=== PATIENT | female | born 1995 | race African-American/Black ===

== ENCOUNTER 2018-06-08 08:50 | Emergency (ER) | payer MEDICAID ==
[2018-06-08 08:55] VITALS: BP 103/65
--- NOTE | 2018-06-08 09:22 | ER Document Report ---
ED Skin Rash/Insect Bite/Abscs - General Chief Complaint: Abscess Stated Complaint: BREAST,BACK PAIN Time Seen by Provider: 06/08/18 09:21 Mode of Arrival: Ambulatory Information source: Patient Notes: 23-year-old with 2 complaints one is some low back pain after moving here and lifting heavy boxes for 1 week. She also noticed a lump in her upper outer quadrant of the right breast. But she does not feel it now. There is no redness fever or chills. No dysuria frequency or urgency. No flank pain. No saddle anesthesia or radiculopathy. No history of breast cysts. No family history of breast cancer. Past Medical History - General Information source: Patient - Social History Smoking Status: Current Every Day Smoker Chew tobacco use (# tins/day): No Frequency of alcohol use: Occasional Drug Abuse: None Lives with: Spouse/Significant other Family History: Reviewed & Not Pertinent Patient has suicidal ideation: No Patient has homicidal ideation: No - Medical History Medical History: Negative Renal/ Medical History: Denies: Hx Peritoneal Dialysis Surgical Hx: Negative Past Surgical History: Reports: Hx Thyroid Surgery - cyst connected to thyroid Review of Systems - Review of Systems Constitutional: No symptoms reported EENT: No symptoms reported Cardiovascular: No symptoms reported Respiratory: No symptoms reported Gastrointestinal: No symptoms reported Genitourinary: No symptoms reported Female Genitourinary: No symptoms reported Musculoskeletal: See HPI Skin: No symptoms reported Hematologic/Lymphatic: No symptoms reported Neurological/Psychological: No symptoms reported Physical Exam - Vital signs Vitals: Temp Pulse Resp BP Pulse Ox 98.5 F 73 16 103/65 98 06/08/18 08:54 06/08/18 08:54 06/08/18 08:54 06/08/18 08:54 06/08/18 08:54 Interpretation: Normal - General General appearance: Appears well, Alert - HEENT Head: Normocephalic, Atraumatic Eyes: Normal Pupils: PERRL Neck: Supple - Respiratory Respiratory status: No respiratory distress Chest status: Nontender, Other - No breast mass felt Breath sounds: Normal Chest palpation: Normal - Cardiovascular Rhythm: Regular Heart sounds: Normal auscultation Murmur: No - Abdominal Inspection: Normal Distension: No distension Bowel sounds: Normal Tenderness: Nontender Organomegaly: No organomegaly - Back Back: Normal, Tender - Bilateral lumbar paraspinal muscles. No: CVA tenderness , Vertebra tenderness - Extremities General upper extremity: Normal inspection, Nontender, Normal color, Normal ROM , Normal temperature General lower extremity: Normal inspection, Nontender, Normal color, Normal ROM , Normal temperature, Normal weight bearing. No: Cesia's sign - Neurological Neuro grossly intact: Yes Cognition: Normal Orientation: AAOx4 [place] Coma Scale Eye Opening: Spontaneous [place] Coma Scale Verbal: Oriented [place] Coma Scale Motor: Obeys Commands [place] Coma Scale Total: 15 Speech: Normal Motor strength normal: LUE, RUE, LLE, RLE Sensory: Normal - Psychological Associated symptoms: Normal affect, Normal mood - Skin Skin Temperature: Warm Skin Moisture: Dry Skin Color: Normal Course - Vital Signs Vital signs: Temp Pulse Resp BP Pulse Ox 98.5 F 73 16 103/65 98 06/08/18 08:54 06/08/18 08:54 06/08/18 08:54 06/08/18 08:54 06/08/18 08:54 Discharge - Discharge Clinical Impression: Mastodynia Low back strain Qualifiers: Encounter type: initial encounter Qualified Code(s): S39.012A - Strain of muscle, fascia and tendon of lower back, initial encounter Disposition: HOME, SELF-CARE Instructions: Breast Lumps ([facility]), Breast Self-Examination ([facility]), Low Back Pain ([facility]), Muscle Strain ([facility]) Additional Instructions: Warm compress Motrin 600 mg every 6 hours as needed for pain and inflammation Tylenol up to 4000 mg a day for pain Outpatient form given to you for breast ultrasound and mammogram Follow-up with [facility] and she was moved to [place]. Prescriptions: Ibuprofen [Motrin 600 mg Tablet] 600 mg PO Q6HP PRN #30 tablet PRN Reason: Forms: Follow-Up Radiology Testing
== END 2018-06-08 10:47 | disposition home or self-care (01) ==
LOC: ER 08:50
DX: S39.012A Strain of muscle, fascia and tendon of lower back, initial encounter (principal); N64.4 Mastodynia; N63.11 Unspecified lump in the right breast, upper outer quadrant; X50.0XXA Overexertion from strenuous movement or load, initial encounter; F17.200 Nicotine dependence, unspecified, uncomplicated
CPT/HCPCS: 99283

== ENCOUNTER 2018-07-20 18:06 | Emergency (ER) | payer MEDICAID ==
[2018-07-20] MEDS ORDERED: PSEUDOEPHEDRINE HCL 30 MG TABLET PO ONE (19:37)
[2018-07-20] MEDS ORDERED: IBUPROFEN 800 MG TABLET PO ONE (19:37)
[2018-07-20] MEDS ORDERED: LORATADINE 10 MG TABLET PO ONE (19:37)
[2018-07-20] MEDS ORDERED: GUAIFENESIN 600 MG TABLET.SA PO ONE (19:37)
--- NOTE | 2018-07-20 19:41 | ER Document Report ---
ED Flu Like - General Chief Complaint: Cold Symptoms Stated Complaint: COLD SYMPTOMS Time Seen by Provider: 07/20/18 19:30 Mode of Arrival: Ambulatory Information source: Patient Notes: 23-year-old female presented to ED for flulike symptoms times 3 days. She states she has had cough cold congestion postnasal drip without improvement. She states she is taken [id number] medication when she lays down she has such a cough is hard to breathe and makes it so she cannot sleep. She states she is taken ibuprofen with no improvement. Patient is alert and oriented respirations regular and unlabored speaking in full sentences walking with a even steady gait. TRAVEL OUTSIDE OF THE [place] IN LAST 30 DAYS: No - HPI Onset: Other - 3 days Timing/Duration: Intermittent Quality of pain: Achy Severity: Severe Pain Level: 5 Associated symptoms: Body/muscle aches, Nonproductive cough, Fever, Rhinnorhea, Sinus pain/drainage, Sore throat Similar symptoms previously: Yes Recently seen / treated by doctor: No - Related Data Allergies/Adverse Reactions: No Known Allergies Allergy (Verified 06/16/18 08:24) Past Medical History - General Information source: Patient - Social History Smoking Status: Former Smoker - She quit in June 2018 Chew tobacco use (# tins/day): No Frequency of alcohol use: None Drug Abuse: None Family History: Reviewed & Not Pertinent Patient has suicidal ideation: No Patient has homicidal ideation: No - Past Medical History Cardiac Medical History: Reports: None Pulmonary Medical History: Reports: None EENT Medical History: Reports: None Neurological Medical History: Reports: None Endocrine Medical History: Reports: None Renal/ Medical History: Reports: None Malignancy Medical History: Reports: None GI Medical History: Reports: None Musculoskeletal Medical History: Reports None Skin Medical History: Reports None Psychiatric Medical History: Reports: None Traumatic Medical History: Reports: None Infectious Medical History: Reports: None Past Surgical History: Reports: Hx Thyroid Surgery - cyst connected to thyroid - Immunizations Immunizations up to date: Yes Hx Diphtheria, Pertussis, Tetanus Vaccination: Yes Review of Systems - Review of Systems Constitutional: Chills, Fever, Recent illness EENT: Nose congestion, Nose discharge, Sinus pressure, Sinus discharge, Throat pain Cardiovascular: No symptoms reported Respiratory: Cough Gastrointestinal: No symptoms reported Genitourinary: No symptoms reported Female Genitourinary: No symptoms reported Musculoskeletal: No symptoms reported Skin: No symptoms reported Hematologic/Lymphatic: No symptoms reported Neurological/Psychological: No symptoms reported -: Yes All other systems reviewed and negative Physical Exam - Vital signs Vitals: Temp Pulse Resp BP Pulse Ox 99.0 F 95 14 128/62 H 98 07/20/18 18:13 07/20/18 18:13 07/20/18 18:13 07/20/18 18:13 07/20/18 18:13 Interpretation: Normal - General General appearance: Appears well, Alert - HEENT Head: Normocephalic, Atraumatic Eyes: Normal Pupils: PERRL Ears: Normal External canal: Normal Tympanic membrane: Normal Sinus: Normal Nasal: Swelling, Clear rhinorrhea Mouth/Lips: Normal Mucous membranes: Normal Pharynx: Post nasal drainage Neck: Normal - Respiratory Respiratory status: No respiratory distress Chest status: Nontender Breath sounds: Nonproductive cough. No: Productive cough, Rales, Rhonchi, Stridor, Wheezing Chest palpation: Normal - Cardiovascular Rhythm: Regular Heart sounds: Normal auscultation Murmur: No - Abdominal Inspection: Normal Distension: No distension Bowel sounds: Normal Tenderness: Nontender Organomegaly: No organomegaly - Back Back: Normal, Nontender - Extremities General upper extremity: Normal inspection, Nontender, Normal color, Normal ROM , Normal temperature General lower extremity: Normal inspection, Nontender, Normal color, Normal ROM , Normal temperature, Normal weight bearing. No: Cesia's sign - Neurological Neuro grossly intact: Yes Cognition: Normal Orientation: AAOx4 [place] Coma Scale Eye Opening: Spontaneous [place] Coma Scale Verbal: Oriented [place] Coma Scale Motor: Obeys Commands [place] Coma Scale Total: 15 Speech: Normal Motor strength normal: LUE, RUE, LLE, RLE Sensory: Normal - Psychological Associated symptoms: Normal affect, Normal mood - Skin Skin Temperature: Warm Skin Moisture: Dry Skin Color: Normal Course - Re-evaluation Re-evalutation: 07/20/18 20:50 Assessment consistent with an upper respiratory infection. Patient was given instructions on upper respiratory infection treatments. After performing a Medical Screening Examination, I estimate there is LOW risk for ACUTE CORONARY SYNDROME, RESPIRATORY FAILURE, SEPSIS OR MENINGITIS, thus I consider the discharge disposition reasonable. I have reevaluated this patient multiple times and no significant life threatening changes are noted. The patient and I have discussed the diagnosis and risks, and we agree with discharging home with close follow-up. We also discussed returning to the Emergency Department immediately if new or worsening symptoms occur. We have discussed the symptoms which are most concerning (e.g., changing or worsening pain, trouble swallowing or breathing, neck stiffness, fever) that necessitate immediate return. - Vital Signs Vital signs: Temp Pulse Resp BP Pulse Ox 99.0 F 104 H 19 112/64 100 07/20/18 19:56 07/20/18 19:56 07/20/18 19:56 07/20/18 19:56 07/20/18 19:56 Discharge - Discharge Clinical Impression: URI (upper respiratory infection) Qualifiers: URI type: unspecified URI Qualified Code(s): J06.9 - Acute upper respiratory infection, unspecified Condition: Stable Disposition: HOME, SELF-CARE Instructions: Family Physicians / Practices Additional Instructions: UPPER RESPIRATORY ILLNESS: You have a viral infection of the respiratory passages -- a "cold." This common infection causes nasal congestion, drainage, and often sore throat and cough. It is highly contagious. The disease usually lasts about 10 to 14 days. There is no "cure" for the viral infection -- it must run its course. If there is a complication, such as bacterial infection in the nose, sinuses, middle ear, or bronchial tubes, antibiotics may be required. The antibiotics won't affect the virus. Drink plenty of fluids. A humidifier may help. An expectorant medication or decongestant may make you more comfortable. Use acetaminophen or ibuprofen for fever or aches. See the doctor if fever persists over two days, if there is any significant worsening of your symptoms, or if you simply fail to improve as expected. Were treated with Claritin 10 mg, Sudafed 30 mg, Mucinex 600 mg, and 800 mg of ibuprofen. You can get all of these medications gwkw-oyf-qgeakil. Ibuprofen you just need to take 4 of the miir-wjb-esgfltj medications. You can also use Flonase which is ovnc-hxn-igdxpxb to go according to the box instructions. Chloraseptic spray will help with your sore throat symptoms. You can also use salt and soda gargles for your sore throat. Salt and soda solution 1 quart of water 1 tablespoon of salt 1 teaspoon of baking soda Mixed 3 ingredients together and boil for 1 minute Placed in a covered quart jar Use 1/2 ounce of cold solution to gargle 3 times a day USE OF ACETAMINOPHEN (Tylenol): Acetaminophen may be taken for pain relief or fever control. It's much safer than aspirin, offering a wider range of "safe" dosages. It is safe during . Some brand names are Tylenol, Panadol, Datril, Anacin 3, Tempra, and Liquiprin. Acetaminophen can be repeated every four hours. The following are maximum recommended dosages: >89 pounds or adults 650 mg to 900 mg Acetaminophen can be repeated every four hours. Maximum dose not to exceed 4000 mg a day. Ibuprofen Ibuprofen is an excellent, safe drug for pain control. In addition, it has potent antiinflammatory effects which are beneficial, especially in the treatment of injuries, arthritis, or tendonitis. It's best to take ibuprofen with food. Persons with ulcer disease or allergy to aspirin should notify their physician of this before taking ibuprofen. Take the medication exactly as prescribed. Don't take additional doses unless instructed to do so by your doctor. If you develop wheezing, shortness of breath, hives, faintness, stomach pain, vomiting, or dark black stools, return for re-evaluation at once. Congratulations from stopping smoking FOLLOW-UP CARE: If you have been referred to a physician for follow-up care, call the physician s office for an appointment as you were instructed or within the next two days. If you experience worsening or a significant change in your symptoms, notify the physician immediately or return to the Emergency Department at any time for re-evaluation. Forms: Elevated Blood Pressure
[2018-07-20 19:57] VITALS: BP 112/64
== END 2018-07-20 19:57 | disposition home or self-care (01) ==
LOC: ER 18:06
DX: J06.9 Acute upper respiratory infection, unspecified (principal); R05 Cough; R09.81 Nasal congestion; R09.82 Postnasal drip; M79.10 Myalgia, unspecified site; R50.9 Fever, unspecified; J34.89 Other specified disorders of nose and nasal sinuses; R51 Headache; J02.9 Acute pharyngitis, unspecified; Z87.891 Personal history of nicotine dependence
CPT/HCPCS: 99283; J3490 ×3

== ENCOUNTER → 2018-08-09 | Outpatient (CLI) | payer MEDICAID ==
[2018-08-09 12:39] LABS: RBCS (WET MOUNT) RARE RBCS SEEN; T.VAGINALIS (WET MOUNT) NO TRICHOMONAS SEEN; WBCS (WET MOUNT) RARE WBCS SEEN; YEAST (WET MOUNT) NO YEAST SEEN
[2018-08-09 14:08] LABS: CHLAM PCR DETECTED (NOT DETECT); GON PCR NOT DETECTED (NOT DETECT)
== END ==
LOC: LAB 12:12
PROVIDERS: ATTEND Nurse Practitioner Acute Care
DX: R30.0 Dysuria (principal); R10.30 Lower abdominal pain, unspecified
CPT/HCPCS: 87210; 87491; 87591

== ENCOUNTER 2018-09-09 20:06 | Emergency (ER) | payer MEDICAID ==
[2018-09-09 22:20] VITALS: BP 165/80
[2018-09-09] MEDS ORDERED: ONDANSETRON 4 MG TAB.RAPDIS PO ONE (22:26)
--- NOTE | 2018-09-09 22:29 | ER Document Report ---
ED General - General Chief Complaint: Dizziness Stated Complaint: SHORTNESS OF BREATH Time Seen by Provider: 09/09/18 22:18 Primary Care Provider: NILDA FELIX NP [Primary Care Provider] - Follow up as needed Mode of Arrival: Ambulatory Information source: Patient, Relative, [facility] Records Notes: 23-year-old female with anxiety presents with complaint of an episode of shortness of breath, nausea and fatigue that occurred just prior to arrival. Patient states that while at rest watching TV she had a onset of shortness of breath, became nauseous and ran to the bathroom because she thought she was going to vomit. She states that she felt shaky at that time. Upon my exam patient is no longer nauseous, short of breath or dizzy. Patient's last menstrual period was July 2018. She denies any fever, chills, chest pain, abdominal pain, hematuria, dysuria, recent illness. Patient is a former smoker. She does not drink or participate in illicit drug use. TRAVEL OUTSIDE OF THE [place] IN LAST 30 DAYS: No - HPI Onset: Just prior to arrival Onset/Duration: Sudden, Gone Quality of pain: No pain Associated symptoms: Nausea, Shortness of breath, Other - Dizziness. denies: Body/muscle aches, Chest pain, Nonproductive cough, Productive cough, Diarrhea, Fever, Headache, Hurts to breath, Leg swelling, Vomiting, Rhinnorhea Exacerbated by: Denies Relieved by: Denies Similar symptoms previously: No Recently seen / treated by doctor: No - Related Data Allergies/Adverse Reactions: No Known Allergies Allergy (Verified 06/16/18 08:24) Past Medical History - General Information source: Patient - Social History Smoking Status: Never Smoker Chew tobacco use (# tins/day): No Frequency of alcohol use: None Drug Abuse: None Lives with: Spouse/Significant other Family History: Reviewed & Not Pertinent Patient has suicidal ideation: No Patient has homicidal ideation: No - Medical History Medical History: Negative Renal/ Medical History: Denies: Hx Peritoneal Dialysis Past Surgical History: Reports: Hx Thyroid Surgery - cyst connected to thyroid - Immunizations Immunizations up to date: Yes Hx Diphtheria, Pertussis, Tetanus Vaccination: Yes Review of Systems - Review of Systems Notes: REVIEW OF SYSTEMS: CONSTITUTIONAL : Denies fever, chills, or sweats. Denies recent illness. Denies weight loss, recent hospitalizations. EENT: Denies visual changes, eye pain. Denies sore throat, oral lesions, difficulty swallowing. CARDIOVASCULAR: Denies chest pain. Denies palpitations. Denies lower extremity edema. RESPIRATORY: Denies cough. Denies wheezing. GASTROINTESTINAL: Denies abdominal pain or distention. Denies vomiting, or diarrhea. Denies blood in vomitus, stools, or per rectum. Denies black, tarry stools. Denies constipation. GENITOURINARY: Denies difficulty urinating, painful urination, frequency, blood in urine, or vaginal discharge. MUSCULOSKELETAL: Denies back or neck pain or stiffness. Denies joint pain or swelling. SKIN: Denies rash, lesions or sores. HEMATOLOGIC : Denies easy bruising or bleeding. LYMPHATIC: Denies swollen glands. NEUROLOGICAL: Denies confusion or altered mental status. Denies loss of consciousness. Denies headache. Denies weakness or paralysis. Denies problems difficulty with ambulation, slurred speech. Denies sensory loss, numbness, or tingling. Denies seizures. PSYCHIATRIC: Denies anxiety or stress. Denies depression, suicidal ideation, or homicidal ideation. Denies visual or auditory hallucinations. Physical Exam - Vital signs Vitals: Temp Pulse Resp BP Pulse Ox 98.3 F 83 16 121/73 97 09/09/18 21:00 09/09/18 21:00 09/09/18 21:00 09/09/18 21:00 09/09/18 21:00 - Notes Notes: PHYSICAL EXAMINATION: GENERAL: Well-appearing, well-nourished and in no acute distress. HEAD: Atraumatic, normocephalic. EYES: Pupils equal round and reactive to light, extraocular movements intact, conjunctiva are normal. ENT: Nares patent, oropharynx clear without exudates. Moist mucous membranes. NECK: Normal range of motion, supple without lymphadenopathy LUNGS: Breath sounds clear to auscultation bilaterally and equal. No wheezes rales or rhonchi. HEART: Regular rate and rhythm without murmurs ABDOMEN: Soft, nontender, nondistended abdomen. No guarding, no rebound. No masses appreciated. Female : deferred Musculoskeletal: Normal range of motion, no pitting or edema. No cyanosis. NEUROLOGICAL: Cranial nerves grossly intact. Normal speech, normal gait. Normal sensory, motor exams PSYCH: Normal mood, normal affect. SKIN: Warm, Dry, normal turgor, no rashes or lesions noted. Course - Re-evaluation Re-evalutation: 09/10/18 19:30 Laboratory 09/09/18 22:43 Urine Color YELLOW Urine Appearance CLEAR Urine pH 6.0 Ur Specific [place] 1.029 Urine Protein NEGATIVE Urine Glucose (UA) NEGATIVE Urine Ketones NEGATIVE Urine Blood NEGATIVE Urine Nitrite NEGATIVE Urine Bilirubin NEGATIVE Urine Urobilinogen NEGATIVE Ur Leukocyte Esterase NEGATIVE Urine WBC (Auto) 1 Urine RBC (Auto) 0 Squamous Epi Cells Auto <1 Urine Mucus (Auto) RARE Urine Ascorbic Acid NEGATIVE Urine HCG, Qual NEGATIVE Chest X-Ray 09/09/18 22:26 IMPRESSION: Negative chest copyright 2011 [employer]- All Rights Reserved Temp Pulse Resp BP Pulse Ox 98.3 F 85 20 165/80 H 100 09/09/18 21:00 09/09/18 22:18 09/09/18 22:18 09/09/18 22:18 09/09/18 22:18 23-year-old female presents with concern for acute onset of shortness of breath nausea and dizziness that resolved prior to arrival and has not reoccurred. Vital signs stable with mild hypertension. Patient does not appear toxic or dehydrated. She is in no acute distress. Patient has a normal neurologic and physical exam. She is ambulating and tolerating fluids. Urinalysis is negative for and infection and chest x-ray shows no acute process. Patient is PERC negative. Patient was reassured and discharged home with recommendations to follow-up with her primary care physician as needed. Patient was evaluated and treated as appropriate for the patient's presenting symptoms and complaint, with consideration of any critical or life threatening conditions that may be associated with their obtained history and exam as noted above. All results were discussed with patient and her significant other at the bedside. Patient provided the opportunity to ask questions, and express concerns. Patient was educated on treatments based on their presumed diagnosis as noted above. At this time we will discharge the patient with return precautions and follow-up recommendations. Verbal discharge instructions given a the bedside. Medication warnings reviewed. Patient is in agreement with this plan and has verbalized understanding of return precautions. After careful consideration I feel that that patient can be safely discharged from the emergency department, they were advised to followup with a primary care physician in 2-3 days. Dictation on this chart was performed using voice recognition software and may result in unintended grammatical, spelling, syntax or errors. - Vital Signs Vital signs: Temp Pulse Resp BP Pulse Ox 98.3 F 85 20 165/80 H 100 09/09/18 21:00 09/09/18 22:18 09/09/18 22:18 09/09/18 22:18 09/09/18 22:18 - Diagnostic Test Radiology reviewed: Image reviewed, Reports reviewed Discharge - Discharge Clinical Impression: Nausea, Elevated blood pressure reading, Dizziness Dyspnea Qualifiers: Dyspnea type: unspecified Qualified Code(s): R06.00 - Dyspnea, unspecified Condition: Good Disposition: HOME, SELF-CARE Instructions: Antinausea Medication ([facility]), Dizziness ([facility]), Dyspnea, Nonspecific ([facility]), Nausea or Vomiting, Nonspecific ([facility]) Prescriptions: Ondansetron [Zofran Odt 4 mg Tablet] 1 tab PO Q6H PRN #15 tab.rapdis PRN Reason: For Nausea/Vomiting Forms: Elevated Blood Pressure Referrals: NILDA FELIX NP [Primary Care Provider] - Follow up as needed
--- NOTE | 2018-09-09 22:56 | RADIOLOGY REPORT (SQ) ---
EXAM DESCRIPTION: XR CHEST 2 VIEWS COMPLETED DATE/TME: 09/09/2018 22:26 CLINICAL HISTORY: 23 years, Female, sob COMPARISON: None. NUMBER OF VIEWS: 2 TECHNIQUE: Frontal and lateral views of the chest LIMITATIONS: None. FINDINGS: Heart size is normal. Lungs are clear. No pneumothorax IMPRESSION: Negative chest copyright 2010 [employer]- All Rights Reserved
[2018-09-09 23:26] LABS: APPEARANCE,URINE CLEAR; BILIRUBIN,URINE NEGATIVE (NEGATIVE); COLOR,URINE YELLOW; GLUCOSE, URINE NEGATIVE (NEGATIVE); KETONES,URINE NEGATIVE (NEGATIVE); LEUKOCYTE ESTERASE,URINE NEGATIVE (NEGATIVE); NITRITE,URINE NEGATIVE (NEGATIVE); PROTEIN,URINE NEGATIVE (NEGATIVE); URINE SPECIFIC GRAVITY 1.029; UROBILINOGEN,URINE NEGATIVE mg/dL (<2.0)
== END 2018-09-10 01:54 | disposition home or self-care (01) ==
LOC: ER 09-10 01:32
DX: R11.0 Nausea (principal); R42 Dizziness and giddiness; R03.0 Elevated blood-pressure reading, without diagnosis of hypertension; R06.00 Dyspnea, unspecified; R06.02 Shortness of breath; R53.83 Other fatigue
CPT/HCPCS: 99284; 81025; 81001; 71046; S0119

== ENCOUNTER 2018-11-16 03:35 | Emergency (ER) | payer MEDICAID ==
[2018-11-16 03:51] VITALS: BP 121/59
[2018-11-16] MEDS ORDERED: KETOROLAC TROMETHAMINE 60 MG/2 ML SDV IM ONE (04:30)
[2018-11-16] MEDS ORDERED: HYDROCODONE/ACETAMINOPHEN 5-325 MG (6 TAB/ER DISP) PO PRN (04:30)
--- NOTE | 2018-11-16 04:36 | ER Document Report ---
HPI - HPI Time Seen by Provider: 11/16/18 04:23 Pain Level: 4 Context: Patient is a 23-year-old female that comes emergency department for chief complaint of soreness in her mouth after wisdom tooth extraction. She had 2 wisdom teeth removed, 1 from each side, this was performed during the day earlier today, she states she was prescribed Tylenol, she has taken Tylenol and she cannot sleep because of the throbbing pain. She is able to swallow her secretions, she denies bleeding, she denies any change in swelling since she was sent home from the dentist. She denies fever or chills. She denies any other complaints. She takes no daily prescribed medications, LMP within the past month. - REPRODUCTIVE Reproductive: DENIES: : Past Medical History - General Information source: Patient - Social History Smoking Status: Never Smoker Frequency of alcohol use: None Drug Abuse: None Lives with: Family Family History: Reviewed & Not Pertinent Renal/ Medical History: Denies: Hx Peritoneal Dialysis Past Surgical History: Reports: Hx Thyroid Surgery - cyst connected to thyroid - Immunizations Immunizations up to date: Yes Hx Diphtheria, Pertussis, Tetanus Vaccination: Yes Vertical Provider Document - CONSTITUTIONAL General Appearance: WD/WN, No Apparent Distress - INFECTION CONTROL TRAVEL OUTSIDE OF THE [place] IN LAST 30 DAYS: No - HEENT HEENT: Atraumatic, Normocephalic. negative: Normal ENT Exam - There is some swelling behind both lower molar areas, appears to have sutures with some dried blood over the areas. No concerning swelling. Unremarkable tongue, oral pharyngeal exam. No evidence of Vincent's angina. No evidence of peritonsillar abscess or hematoma. - NECK Neck: Normal Inspection - RESPIRATORY Respiratory: Breath Sounds Normal, No Respiratory Distress - CARDIOVASCULAR Cardiovascular: Regular Rate, Regular Rhythm - GI/ABDOMEN Gastrointestinal: Abdomen Soft, Abdomen Non-Tender - MUSCULOSKELETAL/EXTREMETIES Musculoskeletal/Extremeties: MAEW, FROM, Non-Tender - NEURO Level of Consciousness: Awake, Alert, Appropriate Motor/Sensory: No Motor Deficit, No Sensory Deficit - DERM Integumentary: Warm, Dry, No Rash Course - Re-evaluation Re-evalutation: Patient is straightforward with me that she has not had any worsening symptoms since her procedure but she could not sleep and she came in hoping for some symptom management. Her physical examination does not show any bleeding, concerning swelling, airway abnormality, pharyngeal edema mildly, tongue abnormality. Vital signs unremarkable. Patient is actually quite well- appearing. Patient is driving home. Provided with a dose of Toradol here, [place] dose pack to use only for sleep at home, ibuprofen prescription. Discussed follow-up, return precautions. Patient states understanding and agreement. - Vital Signs Vital signs: Temp Pulse Resp BP Pulse Ox 98.2 F 121 H 16 121/59 L 98 11/16/18 03:49 11/16/18 03:49 11/16/18 03:49 11/16/18 03:49 11/16/18 03:49 Discharge - Discharge Clinical Impression: Oral pain Condition: Stable Disposition: HOME, SELF-CARE Additional Instructions: During the day I recommend taking the 800 mg of ibuprofen as prescribed, at night you can take the medication provided for you from here, 1-2 tablets, to help you sleep. These can also be combined. Follow-up with your dentist for additional evaluation and management. Return if you worsen including inability to swallow, increased swelling, fever, or any other concerning or worsening symptoms. Prescriptions: Ibuprofen [Ibu] 800 mg PO TID PRN #30 tablet PRN Reason:
== END 2018-11-16 04:52 | disposition home or self-care (01) ==
LOC: ER 03:35
DX: G89.18 Other acute postprocedural pain (principal); K13.79 Other lesions of oral mucosa
CPT/HCPCS: 99282; 96372; J1885

== ENCOUNTER 2019-02-10 08:40 | Emergency (ER) | payer MEDICAID ==
[2019-02-10] MEDS ORDERED: NORMAL SALINE 1000 ML 1,000 ML IV ONE (09:25)
--- NOTE | 2019-02-10 09:26 | ER Document Report ---
ED Medical Screen (RME) - General Chief Complaint: Abdominal Pain Stated Complaint: ABDOMINAL PAIN Time Seen by Provider: 02/10/19 09:24 Mode of Arrival: Ambulatory Information source: Patient Notes: Patient presents complaining of bilateral breast pain, left flank pain and left lower quadrant pain off and on for the past 2 weeks. Patient states she has felt several anxiety episodes over the past several weeks as well. Patient also reports dizziness. Patient denies any urinary symptoms. Patient has not had her menstrual period this month although does have a Nexplanon control i mplant. I have greeted and performed a rapid initial assessment of this patient. A comprehensive ED assessment and evaluation of the patient, analysis of test results and completion of the medical decision making process will be conducted by additional ED providers. TRAVEL OUTSIDE OF THE [place] IN LAST 30 DAYS: No - Related Data Allergies/Adverse Reactions: No Known Allergies Allergy (Verified 02/10/19 08:43) Past Medical History Renal/ Medical History: Denies: Hx Peritoneal Dialysis Past Surgical History: Reports: Hx Thyroid Surgery - cyst connected to thyroid - Immunizations Immunizations up to date: Yes Hx Diphtheria, Pertussis, Tetanus Vaccination: Yes Physical Exam - Vital signs Vitals: Temp Pulse Resp BP Pulse Ox 98.6 F 82 18 139/70 H 98 02/10/19 08:52 02/10/19 08:52 02/10/19 08:52 02/10/19 08:52 02/10/19 08:52 - Back Back: CVA tenderness - Left Course - Vital Signs Vital signs: Temp Pulse Resp BP Pulse Ox 98.6 F 82 18 139/70 H 98 02/10/19 08:52 02/10/19 08:52 02/10/19 08:52 02/10/19 08:52 02/10/19 08:52
[2019-02-10 09:56] LABS: ABSOLUTE EOSINOPHILS # (AUTO) 0.1 10^3/uL (0.0-0.6); ABSOLUTE MONOCYTES (AUTO) 0.4 10^3/uL (0.1-1.4); ABSOLUTE NEUT (AUTO) 2.1 10^3/uL (1.7-8.2); BASOPHILS % (AUTO) 0.7 % (0-2); EOSINOPHILS % (AUTO) 2.1 % (0-6); HEMATOCRIT 42.4 % (36.0-47.0); HEMOGLOBIN 14.2 g/dL (12.0-15.5); MEAN CORPUSCULAR HEMOGLOBIN 28.8 pg (27.0-33.4); MEAN CORPUSCULAR HGB CONC 33.5 g/dL (32.0-36.0); MEAN CORPUSCULAR VOLUME 86 fl (80-97); MONOCYTES % (AUTO) 8.6 % (3-13); PLATELET COUNT 249 10^3/uL (150-450); RED BLOOD COUNT 4.93 10^6/uL (3.72-5.28); RED CELL DISTRIBUTION WIDTH 13.3 % (11.5-14.0); SEGMENTED NEUTROPHILS % (AUTO) 44.6 % (42-78); TOTAL CELLS COUNTED % (AUTO) 100 %; WHITE BLOOD COUNT 4.6 10^3/uL (4.0-10.5)
--- NOTE | 2019-02-10 10:02 | ER Document Report ---
Addendum entered and electronically signed by COLLIN PAYNE PA-C 02/10/19 15:02: Course - Vital Signs Vital signs: Temp Pulse Resp BP Pulse Ox 98.6 F 82 18 139/70 H 98 02/10/19 08:52 02/10/19 08:52 02/10/19 08:52 02/10/19 08:52 02/10/19 08:52 - Laboratory Result Diagrams: 02/10/19 09:34 02/10/19 09:34 Laboratory results interpreted by me: 02/10/19 09:34 Creatinine 0.49 L AST 40 H - EKG Interpretation by Me EKG shows normal: Sinus rhythm Rate: Normal Rhythm: NSR - no STEMI Original Note: ED General - General Chief Complaint: Abdominal Pain Stated Complaint: ABDOMINAL PAIN Time Seen by Provider: 02/10/19 09:24 Mode of Arrival: Ambulatory TRAVEL OUTSIDE OF THE [place] IN LAST 30 DAYS: No - HPI Notes: 23-year-old female to the emergency department with complaints of left lower abdominal pain as well as right lower abdominal pain that began about a week ago . States that the pain comes and goes but has been getting worse in the past 24 hours. Most of the pain is in the left lower quadrant. Had a normal bowel movement yesterday. Denies any diarrhea. Does admit to some nausea but has not been vomiting. Denies fevers, chills, chest pain, shortness of breath, urinary complaints, history of kidney stones. She has a history of ovarian cyst and this feels slightly similar but she is not completely sure. Denies vaginal discharge, vaginal bleeding. Also reports some increased anxiety over the past several weeks. 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 She denies any suicidal thoughts or homicidal thoughts. She would like to follow-up for outpatient therapy for her anxiety. - Related Data Allergies/Adverse Reactions: No Known Allergies Allergy (Verified 02/10/19 08:43) Past Medical History - General Information source: Patient - Social History Smoking Status: Never Smoker Chew tobacco use (# tins/day): No Frequency of alcohol use: None Drug Abuse: None Family History: Reviewed & Not Pertinent Patient has suicidal ideation: No Patient has homicidal ideation: No Renal/ Medical History: Denies: Hx Peritoneal Dialysis Past Surgical History: Reports: Hx Thyroid Surgery - cyst connected to thyroid - Immunizations Immunizations up to date: Yes Hx Diphtheria, Pertussis, Tetanus Vaccination: Yes Review of Systems - Review of Systems Constitutional: No symptoms reported EENT: No symptoms reported Cardiovascular: denies: Chest pain, Palpitations, Syncope, Dizziness, Lightheaded Respiratory: denies: Cough, Short of breath Gastrointestinal: Abdominal pain, Nausea. denies: Diarrhea, Vomiting, Constipation Genitourinary: denies: Frequency, Hematuria, Urgency, Retention Female Genitourinary: denies: Heavy/abnormal periods, Vaginal discharge, Vaginal bleeding, Vaginal odor, Painful intercourse Musculoskeletal: No symptoms reported Skin: No symptoms reported Neurological/Psychological: Anxiety. denies: Depression, Hallucinations, Homicidal ideation, Suicidal ideation -: Yes All other systems reviewed and negative Physical Exam - Vital signs Vitals: Temp Pulse Resp BP Pulse Ox 98.6 F 82 18 139/70 H 98 02/10/19 08:52 02/10/19 08:52 02/10/19 08:52 02/10/19 08:52 02/10/19 08:52 Interpretation: Normal - General General appearance: Appears well, Alert - HEENT Head: Normocephalic, Atraumatic Eyes: Normal Pupils: PERRL - Respiratory Respiratory status: No respiratory distress Chest status: Nontender Breath sounds: Normal Chest palpation: Normal - Cardiovascular Rhythm: Regular Heart sounds: Normal auscultation Murmur: No - Abdominal Inspection: Obese Distension: No distension Bowel sounds: Normal Tenderness: Tender - Mild tenderness to palpation over the left lower quadrant and into the right lower quadrant. Negative Rovsing's. No rebound, no guarding, no CVA tenderness - Back Back: Normal, Nontender - Neurological Neuro grossly intact: Yes Cognition: Normal Orientation: AAOx4 Mobile Coma Scale Eye Opening: Spontaneous Jose Manuel Coma Scale Verbal: Oriented Jose Manuel Coma Scale Motor: Obeys Commands Jose Manuel Coma Scale Total: 15 Speech: Normal Motor strength normal: LUE, RUE, LLE, RLE Sensory: Normal - Psychological Associated symptoms: Normal affect, Anxious - Admits to anxiety that has been worse over the past couple of weeks. Admits to a history of anxiety. Denies SI, HI, hallucinations. No: Labile, Tactile hallucinations, Visual hallucinations - Skin Skin Temperature: Warm Skin Moisture: Dry Skin Color: Normal Course - Re-evaluation Re-evalutation: 02/10/19 14:53 Patient is doing well. Noted CT reading with left ovarian cyst. No other intra-abdominal acute process. She has had good pain control since being here in the emergency department. - Vital Signs Vital signs: Temp Pulse Resp BP Pulse Ox 98.6 F 82 18 139/70 H 98 02/10/19 08:52 02/10/19 08:52 02/10/19 08:52 02/10/19 08:52 02/10/19 08:52 - Laboratory Result Diagrams: 02/10/19 09:34 02/10/19 09:34 Laboratory results interpreted by me: 02/10/19 09:34 Creatinine 0.49 L AST 40 H - Diagnostic Test Radiology reviewed: Image reviewed, Reports reviewed - Transfer of Care Notes: 02/10/19 14:54 Impression: Left ovarian cyst. Plan to send home with Motrin and small amount of tramadol for pain control. We will also have patient follow with [facility] for follow-up of ovarian cyst. Patient also complains of anxiety has been worsening over the past several weeks due to stress in her life. She denies SI, HI, hallucinations. We will plan on giving her information for follow-up for outpatient therapy for anxiety. Have also encouraged her to return immediately if she is beginning to feel she is having suicidal thoughts or homicidal thoughts. Will have our cardroom worker give patient resources for follow-up. Discharge - Discharge Clinical Impression: Left ovarian cyst, Abdominal pain, Anxiety Condition: Good Disposition: HOME, SELF-CARE Instructions: Ovarian Cyst ([facility]), Anxiety ([facility]), [facility] Additional Instructions: Follow-up with [facility] for further management and treatment of ovarian cyst. Take medicines as prescribed. Follow-up with outpatient psychiatric services for anxiety. Return immediately if any worsening anxiety, depression, suicidal thoughts, homicidal thoughts, hallucinations. Prescriptions: Ibuprofen [Motrin 600 mg Tablet] 600 mg PO TID #24 tablet Tramadol HCl [Ultram 50 mg Tablet] 50 mg PO DAILY #7 tab Forms: Return to Work Referrals: DAYAN CHIU MD [ACTIVE STAFF] - Follow up as needed
[2019-02-10 10:03] LABS: APPEARANCE,URINE CLEAR; BILIRUBIN,URINE NEGATIVE (NEGATIVE); COLOR,URINE YELLOW; GLUCOSE, URINE NEGATIVE (NEGATIVE); KETONES,URINE NEGATIVE (NEGATIVE); LEUKOCYTE ESTERASE,URINE NEGATIVE (NEGATIVE); NITRITE,URINE NEGATIVE (NEGATIVE); PROTEIN,URINE NEGATIVE (NEGATIVE); URINE SPECIFIC GRAVITY 1.017; UROBILINOGEN,URINE NEGATIVE mg/dL (<2.0)
[2019-02-10 10:17] LABS: ALANINE AMINOTRANSFERASE 27 U/L (9-52); ALBUMIN 4.6 g/dL (3.5-5.0); ALKALINE PHOSPHATASE 82 U/L (38-126); ANION GAP 9 (5-19); ASPARTATE AMINO TRANSFERASE 40 U/L (14-36); BILIRUBIN,DIRECT 0.2 mg/dL (0.0-0.4); BILIRUBIN,TOTAL 0.5 mg/dL (0.2-1.3); BLOOD UREA NITROGEN 11 mg/dL (7-20); CALCIUM 9.7 mg/dL (8.4-10.2); CARBON DIOXIDE 25 mmol/L (22-30); CHLORIDE 106 mmol/L (98-107); GLUCOSE 98 mg/dL (75-110); POTASSIUM 4.3 mmol/L (3.6-5.0); SODIUM 139.9 mmol/L (137-145)
[2019-02-10] MEDS ORDERED: ONDANSETRON HCL INJ/PF 4 MG/2 ML SDV IV ONE (11:05)
[2019-02-10] MEDS ORDERED: MORPHINE SULFATE 10 MG/ML INJ IV ONE (11:06)
--- NOTE | 2019-02-10 14:32 | RADIOLOGY REPORT (SQ) ---
EXAM DESCRIPTION: CT ABD/PELVIS WITH IV ORAL COMPLETED DATE/TIME: 02/10/2019 2:20 pm REASON FOR STUDY: RLQ and LLQ abd pain COMPARISON: None. TECHNIQUE: CT scan of the abdomen and pelvis performed with intravenous and oral contrast using shahab santiago scanning technique with dynamic intravenous contrast injection. Images reviewed with lung, soft t issue, and bone windows. Reconstructed coronal and sagittal MPR images reviewed. Delayed images for e valuation of the urinary system also acquired. All images stored on PACS. All CT scanners at this facility use dose modulation, iterative reconstruction, and/or weight based d osing when appropriate to reduce radiation dose to as low as reasonably achievable (ALARA). [facility]: Dose Right [facility]: CareDose [facility]: Dose Right [facility]: Teradose 4D [facility]: [employer] CONTRAST TYPE AND DOSE: contrast/concentration: Isovue 350.00 mg/ml; Total Contrast Delivered: 100.0 ml; Total Saline Delivered: 43.8 ml RENAL FUNCTION: BUN 11 creatinine 0.49. RADIATION DOSE: CT Rad equipment meets quality standard of care and radiation dose reduction techniq ues were employed. CTDIvol: 17.2 - 20.1 mGy. DLP: 1823 mGy-cm.. LIMITATIONS: None. FINDINGS: LOWER CHEST: No significant findings. No nodules or infiltrates. LIVER: Normal size. No masses. No dilated ducts. SPLEEN: Normal size. No focal lesions. PANCREAS: No masses. No significant calcifications. No adjacent inflammation or peripancreatic fluid collections. Pancreatic duct not dilated. GALLBLADDER: No identified stones by CT criteria. No inflammatory changes to suggest cholecystitis. ADRENAL GLANDS: No significant masses or asymmetry. RIGHT KIDNEY AND URETER: No solid masses. No significant calcification. No hydronephrosis or hydroure ter. LEFT KIDNEY AND URETER: No solid masses. No significant calcification. No hydronephrosis or hydrouret er. AORTA AND VESSELS: No aneurysm. No dissection. Renal arteries, SMA, celiac without stenosis. RETROPERITONEUM: No retroperitoneal adenopathy, hemorrhage or masses. BOWEL AND PERITONEAL CAVITY: No obstruction. No visualized masses. No free fluid. No inflammatory ch anges or thickening of bowel wall. APPENDIX: Normal. PELVIS: 2.6 cm left ovarian cyst. Normal bladder. No free fluid. ABDOMINAL WALL: No masses. No hernias. BONES: No significant or acute findings. OTHER: No other significant finding. IMPRESSION: 2.6 CM LEFT OVARIAN CYST. NO OTHER SIGNIFICANT OR ACUTE FINDINGS IN THE ABDOMEN OR PELV IS. TECHNICAL DOCUMENTATION: JOB ID: [id number] Quality ID # [id number]: Final reports with documentation of one or more dose reduction techniques (e.g., Au tomated exposure control, adjustment of the mA and/or kV according to patient size, use of iterative reconstruction technique) 2010 [employer]- All Rights Reserved Reading location - IP/workstation name: [email or web address]
[2019-02-10 15:11] VITALS: BP 123/65
--- NOTE | 2019-02-10 21:58 | EKG REPORT ---
SEVERITY:- NORMAL ECG - SINUS RHYTHM : Confirmed by: Jude De Leon 10-Feb-2019 21:58:06
== END 2019-02-10 15:30 | disposition home or self-care (01) ==
LOC: ER 08:40
DX: N83.202 Unspecified ovarian cyst, left side (principal); F41.9 Anxiety disorder, unspecified; R11.0 Nausea; R10.32 Left lower quadrant pain; R10.814 Left lower quadrant abdominal tenderness; R10.31 Right lower quadrant pain; R10.813 Right lower quadrant abdominal tenderness
CPT/HCPCS: 93005; 99284; 36415; 84703; 85025; 80053; 81001; 74177; 93010; J2270; J2405; J7030

== ENCOUNTER 2019-04-11 10:44 | Emergency (ER) | payer MEDICAID ==
[2019-04-11] MEDS ORDERED: NORMAL SALINE 1000 ML 1,000 ML IV ONE (11:53)
--- NOTE | 2019-04-11 11:53 | ER Document Report ---
ED Medical Screen (RME) - General Chief Complaint: Abdominal Pain Stated Complaint: ABDOMINAL PAIN Time Seen by Provider: 04/11/19 11:48 Mode of Arrival: Ambulatory Information source: Patient Notes: 23-year-old female presented to ED for complaint of left abdomen and flank pain that started this morning. She has no nausea vomiting or diarrhea. She states she has not had any urinary frequency urgency or blood in her urine. She does have a Nexplanon and she has had thyroid cyst removed. She denies any smoking drinking or using any drugs. She does have tenderness to the left CVA and left upper quadrant. I have greeted and performed a rapid initial assessment of this patient. A comprehensive ED assessment and evaluation of the patient, analysis of test results and completion of medical decision making process will be conducted by an additional ED providers. TRAVEL OUTSIDE OF THE [place] IN LAST 30 DAYS: No - Related Data Allergies/Adverse Reactions: No Known Allergies Allergy (Verified 02/10/19 08:43) Past Medical History Renal/ Medical History: Denies: Hx Peritoneal Dialysis Past Surgical History: Reports: Hx Thyroid Surgery - cyst connected to thyroid - Immunizations Immunizations up to date: Yes Hx Diphtheria, Pertussis, Tetanus Vaccination: Yes Physical Exam - Vital signs Vitals: Temp Pulse Resp BP Pulse Ox 97.9 F 78 16 111/66 99 04/11/19 10:59 04/11/19 10:59 04/11/19 10:59 04/11/19 10:59 04/11/19 10:59 Course - Vital Signs Vital signs: Temp Pulse Resp BP Pulse Ox 97.9 F 78 16 111/66 99 04/11/19 10:59 04/11/19 10:59 04/11/19 10:59 04/11/19 10:59 04/11/19 10:59
[2019-04-11] MEDS ORDERED: KETOROLAC TROMETHAMINE INJ/PF 30 MG/1 ML SDV IV ONE (11:54)
[2019-04-11] MEDS ORDERED: ONDANSETRON HCL INJ/PF 4 MG/2 ML SDV IV ONE (11:54)
[2019-04-11 12:32] LABS: ABSOLUTE EOSINOPHILS # (AUTO) 0.2 10^3/uL (0.0-0.6); ABSOLUTE MONOCYTES (AUTO) 0.3 10^3/uL (0.1-1.4); ABSOLUTE NEUT (AUTO) 1.7 10^3/uL (1.7-8.2); BASOPHILS % (AUTO) 0.6 % (0-2); HEMATOCRIT 39.8 % (36.0-47.0); HEMOGLOBIN 13.6 g/dL (12.0-15.5); LYMPHOCYTES % (AUTO) 47.1 % (13-45); MEAN CORPUSCULAR HEMOGLOBIN 29.2 pg (27.0-33.4); MEAN CORPUSCULAR HGB CONC 34.2 g/dL (32.0-36.0); MEAN CORPUSCULAR VOLUME 86 fl (80-97); MONOCYTES % (AUTO) 6.9 % (3-13); PLATELET COUNT 281 10^3/uL (150-450); RED BLOOD COUNT 4.66 10^6/uL (3.72-5.28); RED CELL DISTRIBUTION WIDTH 13.5 % (11.5-14.0); SEGMENTED NEUTROPHILS % (AUTO) 41.4 % (42-78); TOTAL CELLS COUNTED % (AUTO) 100 %; WHITE BLOOD COUNT 4.2 10^3/uL (4.0-10.5)
--- NOTE | 2019-04-11 12:40 | RADIOLOGY REPORT (SQ) ---
EXAM DESCRIPTION: CT ABD/PELVIS NO ORAL OR IV COMPLETED DATE/TIME: 04/11/2019 12:26 pm REASON FOR STUDY: left flank pain COMPARISON: CT abdomen and pelvis 02/10/2019. TECHNIQUE: CT scan of the abdomen and pelvis performed without intravenous or oral contrast. Images reviewed with lung, soft tissue, and bone windows. Reconstructed coronal and sagittal MPR images revi ewed. All images stored on PACS. All CT scanners at this facility use dose modulation, iterative reconstruction, and/or weight based d osing when appropriate to reduce radiation dose to as low as reasonably achievable (ALARA). [facility]: Dose Right [facility]: CareDose [facility]: Dose Right [facility]: Teradose 4D [facility]: [employer] RADIATION DOSE: mGy. LIMITATIONS: None. FINDINGS: LOWER CHEST: No consolidation or pleural effusion. NON-CONTRASTED LIVER, SPLEEN, ADRENALS: Evaluation limited by lack of IV contrast. No identified sign ificant masses. PANCREAS: No peripancreatic inflammatory changes. GALLBLADDER: Present. RIGHT KIDNEY AND URETER: Assessment for masses limited by lack of IV contrast. No significant calci fications. No hydronephrosis or hydroureter. LEFT KIDNEY AND URETER: Assessment for masses limited by lack of IV contrast. No significant calcif ications. No hydronephrosis or hydroureter. AORTA AND RETROPERITONEUM: No abdominal aortic aneurysm. No retroperitoneal masses or hemorrhage. BOWEL AND PERITONEAL CAVITY: No dilated bowel loops or inflammatory changes. No free fluid. APPENDIX: Normal. PELVIS, BLADDER, AND ABDOMINAL WALL:The uterus is present. There is a 2.5 cm cystic area at the left ovary, probably presenting a functional cyst. No free fluid. Bladder decompressed. There is a smal l fat containing umbilical hernia. BONES: No significant findings. IMPRESSION: No hydronephrosis or obstructing ureteral calculi. 2.5 cm cyst at the left ovary. Othe rwise, no acute findings on unenhanced CT. COMMENT: Quality ID # [id number]: Final reports with documentation of one or more dose reduction techniques (e.g., Automated exposure control, adjustment of the mA and/or kV according to patient size, use of iterative reconstruction technique) TECHNICAL DOCUMENTATION: JOB ID: [id number] 2010 [employer]- All Rights Reserved Reading location - IP/workstation name: [email or web address]
[2019-04-11 12:47] LABS: ALBUMIN 4.1 g/dL (3.5-5.0); ALKALINE PHOSPHATASE 86 U/L (38-126); ANION GAP 8 (5-19); ASPARTATE AMINO TRANSFERASE 136 U/L (14-36); BILIRUBIN,DIRECT 0.2 mg/dL (0.0-0.4); BILIRUBIN,TOTAL 0.5 mg/dL (0.2-1.3); BLOOD UREA NITROGEN 10 mg/dL (7-20); CALCIUM 9.8 mg/dL (8.4-10.2); CARBON DIOXIDE 25 mmol/L (22-30); CHLORIDE 108 mmol/L (98-107); GLUCOSE 94 mg/dL (75-110); POTASSIUM 3.9 mmol/L (3.6-5.0); TOTAL PROTEIN 6.8 g/dL (6.3-8.2)
[2019-04-11 12:58] LABS: AMORPHOUS SEDIMENT,URINE TRACE /HPF; APPEARANCE,URINE TURBID; BILIRUBIN,URINE NEGATIVE (NEGATIVE); COLOR,URINE YELLOW; GLUCOSE, URINE NEGATIVE (NEGATIVE); KETONES,URINE NEGATIVE (NEGATIVE); LEUKOCYTE ESTERASE,URINE NEGATIVE (NEGATIVE); NITRITE,URINE NEGATIVE (NEGATIVE); PROTEIN,URINE NEGATIVE (NEGATIVE); UROBILINOGEN,URINE NEGATIVE mg/dL (<2.0)
--- NOTE | 2019-04-11 14:33 | ER Document Report ---
ED General - General Chief Complaint: Abdominal Pain Stated Complaint: ABDOMINAL PAIN Time Seen by Provider: 04/11/19 11:48 Primary Care Provider: JOANNE ROJO MD [ACTIVE STAFF] - Follow up in 3-5 days (primary care. ) Mode of Arrival: Ambulatory Notes: Patient is a 23-year-old female with history of ovarian cysts that presents to the emergency department for chief complaint of left-sided abdominal pain. Patient states that her pain started earlier this morning around 8 AM, described as a sharp pain, she felt in her left upper abdomen as well as her left back, and left lower abdomen. She describes the pain as a 4 out of 10 at this time, improved after receiving some Toradol, she did try to take some Motrin at home which that helped but then the pain came back. She has a history of ovarian cyst and this feels somewhat similar, but the pain is a little bit higher. She was concerned she may have a kidney stone. Although she is never had one before. Denies have any dysuria, hematuria or urinary frequency. Denies any fevers, chills, night sweats, nausea, vomiting. She admits to having some diarrhea last night, and states that she is normally not constipated. No other complaints at this time. Past Medical History: Ovarian cyst Past Surgical History: Thyroid cyst surgery Social History: Denies tobacco, alcohol or drug use. Family History: Reviewed and noncontributory for presenting illness Allergies: Reviewed, see documented allergy list. REVIEW OF SYSTEMS: Other than noted above, the 12 point review of systems was reviewed with the patient and were negative, all pertinent findings are included in the HPI. PHYSICAL EXAMINATION: Vital signs reviewed, nursing noted reviewed. GENERAL: Well-appearing, well-nourished and in no acute distress. HEAD: Atraumatic, normocephalic. EYES: Eyes appear normal, extraocular movements intact, sclera anicteric, conju nctiva are normal. ENT: nares patent, oropharynx clear without exudates. Moist mucous membranes. NECK: Normal range of motion, supple without lymphadenopathy LUNGS: Breath sounds clear to auscultation bilaterally and equal. No wheezes rales or rhonchi. HEART: Regular rate and rhythm without murmurs ABDOMEN: Soft, left lower abdominal tenderness to palpation, mild left upper quadrant tenderness to palpation, normoactive bowel sounds. No rebound, guarding, or rigidity. No masses appreciated. EXTREMITIES: Nontender, good range of motion, no pitting or edema. NEUROLOGICAL: No focal neurological deficits. Moves all extremities spontaneously Motor and sensory grossly intact on exam. PSYCH: Normal mood, normal affect. SKIN: Warm, Dry, normal turgor, no rashes or lesions noted on exposed skin TRAVEL OUTSIDE OF THE [place] IN LAST 30 DAYS: No - Related Data Allergies/Adverse Reactions: No Known Allergies Allergy (Verified 02/10/19 08:43) Past Medical History - General Information source: Patient - Social History Smoking Status: Never Smoker Frequency of alcohol use: None Drug Abuse: None Family History: Reviewed & Not Pertinent Patient has suicidal ideation: No Patient has homicidal ideation: No Renal/ Medical History: Denies: Hx Peritoneal Dialysis Past Surgical History: Reports: Hx Thyroid Surgery - cyst connected to thyroid - Immunizations Immunizations up to date: Yes Hx Diphtheria, Pertussis, Tetanus Vaccination: Yes Physical Exam - Vital signs Vitals: Temp Pulse Resp BP Pulse Ox 97.9 F 78 16 111/66 99 04/11/19 10:59 04/11/19 10:59 04/11/19 10:59 04/11/19 10:59 04/11/19 10:59 Course - Re-evaluation Re-evalutation: Patient seen and examined vital signs reviewed. Laboratory data and/or imaging were ordered as appropriate for the patient's presenting symptoms and complaint, with consideration of any critical or life threatening conditions that may be associated with their obtained history and exam as noted above. Patient was treated with IV Zofran and Toradol Results were reviewed when available and demonstrated CT imaging demonstrated 2.5 cm ovarian cyst, was otherwise unremarkable, blood work was negative, hCG negative, UA negative. The patient was re-evaluated and was stable, she still having some pain, she is given a dose of IV morphine, which did improve her pain at this point feel the patient can be discharged, she may have a component of gastritis because she d oes take Motrin on a regular basis and does drink caffeine, will prescribe her omeprazole, and advised to avoid NSAIDs and follow-up with a primary care physician. Results consistent with an ovarian cyst, possible gastritis. Results were discussed with the patient at this point, after careful cons ideration I feel that that patient can be discharged from the emergency department, the patient was educated treatments and reasons to return to the emergency department based on their presumed diagnosis as noted above, they were advised to followup with a primary care physician in 2-3 days. Patient was agreeable to plan of care. *Note is created using voice recognition software and may contain spelling, syntax or grammatical errors. Laboratory 04/11/19 04/11/19 04/11/19 12:10 12:10 12:10 WBC 4.2 RBC 4.66 Hgb 13.6 Hct 39.8 MCV 86 MCH 29.2 MCHC 34.2 RDW 13.5 Plt Count 281 Lymph % (Auto) 47.1 H [place] % (Auto) 6.9 Eos % (Auto) 4.0 Baso % (Auto) 0.6 Absolute Neuts (auto) 1.7 Absolute Lymphs (auto) 2.0 Absolute Monos (auto) 0.3 Absolute Eos (auto) 0.2 Absolute Basos (auto) 0.0 Seg Neutrophils % 41.4 L Sodium 140.8 Potassium 3.9 Chloride 108 H Carbon Dioxide 25 Anion Gap 8 BUN 10 Creatinine 0.52 Est GFR ( Amer) > 60 Est GFR (MDRD) Non-Af > 60 Glucose 94 Calcium 9.8 Total Bilirubin 0.5 Direct Bilirubin 0.2 Neonat Total Bilirubin Not Reportable Neonat Direct Bilirubin Not Reportable Neonat Indirect Bili Not Reportable AST 136 H ALT 54 Alkaline Phosphatase 86 Total Protein 6.8 Albumin 4.1 Serum HCG, Qual NEGATIVE Urine Color Urine Appearance Urine pH Ur Specific [place] Urine Protein Urine Glucose (UA) Urine Ketones Urine Blood Urine Nitrite Urine Bilirubin Urine Urobilinogen Ur Leukocyte Esterase Amorphous Sediment Auto Urine Mucus (Auto) Urine Ascorbic Acid 04/11/19 12:10 WBC RBC Hgb Hct MCV MCH MCHC RDW Plt Count Lymph % (Auto) [place] % (Auto) Eos % (Auto) Baso % (Auto) Absolute Neuts (auto) Absolute Lymphs (auto) Absolute Monos (auto) Absolute Eos (auto) Absolute Basos (auto) Seg Neutrophils % Sodium Potassium Chloride Carbon Dioxide Anion Gap BUN Creatinine Est GFR ( Amer) Est GFR (MDRD) Non-Af Glucose Calcium Total Bilirubin Direct Bilirubin Neonat Total Bilirubin Neonat Direct Bilirubin Neonat Indirect Bili AST ALT Alkaline Phosphatase Total Protein Albumin Serum HCG, Qual Urine Color YELLOW Urine Appearance TURBID Urine pH 5.0 Ur Specific [place] 1.030 Urine Protein NEGATIVE Urine Glucose (UA) NEGATIVE Urine Ketones NEGATIVE Urine Blood NEGATIVE Urine Nitrite NEGATIVE Urine Bilirubin NEGATIVE Urine Urobilinogen NEGATIVE Ur Leukocyte Esterase NEGATIVE Amorphous Sediment Auto TRACE Urine Mucus (Auto) MANY Urine Ascorbic Acid NEGATIVE Abdomen/Pelvis CT 04/11/19 11:53 IMPRESSION: No hydronephrosis or obstructing ureteral calculi. 2.5 cm cyst at the left ovary. Otherwise, no acute findings on unenhanced CT. - Vital Signs Vital signs: Temp Pulse Resp BP Pulse Ox 97.9 F 78 16 111/66 99 04/11/19 10:59 04/11/19 10:59 04/11/19 10:59 04/11/19 10:59 04/11/19 10:59 - Laboratory Result Diagrams: 04/11/19 12:10 04/11/19 12:10 Laboratory results interpreted by me: 04/11/19 04/11/19 12:10 12:10 Lymph % (Auto) 47.1 H Seg Neutrophils % 41.4 L Chloride 108 H AST 136 H Discharge - Discharge Clinical Impression: Ovarian cyst Qualifiers: Laterality: left Qualified Code(s): N83.202 - Unspecified ovarian cyst, left side Abdominal pain Qualifiers: Abdominal location: unspecified location Qualified Code(s): R10.9 - Unspecified abdominal pain Condition: Stable Disposition: HOME, SELF-CARE Instructions: Abdominal Pain ([facility]), Ovarian Cyst ([facility]) Additional Instructions: Please take the prescribed omeprazole as directed, and otherwise avoid anti- inflammatories such as Motrin, Aleve, ibuprofen, and take Tylenol instead for pain. Please follow-up with a primary care physician one has been listed with your paperwork if you do not have one already. Prescriptions: Omeprazole 40 mg PO DAILY #15 capsule. Referrals: JOANNE ROJO MD [ACTIVE STAFF] - Follow up in 3-5 days (primary care. )
[2019-04-11] MEDS ORDERED: MORPHINE SULFATE 10 MG/ML INJ IV ONE (14:42)
[2019-04-11 15:13] VITALS: BP 106/55
== END 2019-04-11 15:11 | disposition home or self-care (01) ==
LOC: ER 10:44
DX: N83.202 Unspecified ovarian cyst, left side (principal); R10.9 Unspecified abdominal pain
CPT/HCPCS: 36415; 84703; 85025; 80053; 81001; 74176; J1885; J2270; J2405; J7030; 96361; 96374; 96375; 99284